=== PATIENT | female | born 1965 | race Caucasian/White ===

== ENCOUNTER 2017-06-19 01:46 | Emergency (ER) | payer SELFPAY ==
[~2017-06-19] VITALS: Ht 154.9 cm; Wt 60.0 kg
[~2017-06-19 01:46] MED LIST: LORT7.5T3
[2017-06-19 01:47] VITALS: BP 173/88; PULSE 68; RESP 16; TEMP 97.8; O2SAT 99
[2017-06-19] MEDS ORDERED: HYDR-3534 PO (02:05)
[2017-06-19] MEDS ORDERED: LEVO100T5 PO (02:05)
[2017-06-19] MEDS ORDERED: SODIUM CHLORIDE 0.9% FLUSH 10 ML FLUSH IVF PRN (02:45)
[2017-06-19] MEDS ORDERED: ASPIRIN 81 MG CHEW TAB PO ONE (02:45)
--- NOTE | 2017-06-19 02:55 | RADRPT ---
EXAM DATE/TIME: 06/19/2017 02:42 [facility] COMPARISON: No previous studies available for comparison. INDICATIONS : Chest pain MEDICAL HISTORY : None. SURGICAL HISTORY : section. Breast Augmentation ENCOUNTER: Initial ACUITY: 1 day PAIN SCORE: 7/10 LOCATION: Bilateral chest FINDINGS: A single view of the chest demonstrates the lungs to be symmetrically aerated without evidence of mas s, infiltrate or effusion. The cardiomediastinal contours are unremarkable. Osseous structures are intact. CONCLUSION: No evidence of acute cardiopulmonary disease. Aditya Cantu MD on June 19, 2017 at 2:54 Board Certified Radiologist. This report was verified electronically.
[2017-06-19 03:01] LABS: AUTOMATED NEUTROPHIL # 8.4 TH/MM3 (1.8-7.7); BASOPHIL # 0.1 TH/MM3 (0-0.2); BASOPHIL % 0.6 % (0.0-2.0); EOSINOPHIL # 0.4 TH/MM3 (0-0.4); EOSINOPHIL % 2.7 % (0.0-4.0); HEMATOCRIT 39.6 % (35.0-46.0); HEMOGLOBIN 13.2 GM/DL (11.6-15.3); LYMPH % 25.1 % (9.0-44.0); LYMPHOCYTE # 3.5 TH/MM3 (1.0-4.8); MEAN CELL VOLUME 91.2 FL (80.0-100.0); MEAN CORPUSCULAR HEMOGLOBIN 30.5 PG (27.0-34.0); MEAN CORPUSCULAR HGB CONC 33.4 % (32.0-36.0); MEAN PLATELET VOLUME 9.7 FL (7.0-11.0); MONO % 11.8 % (0.0-8.0); MONOCYTE # 1.6 TH/MM3 (0-0.9); NEUT % 59.8 % (16.0-70.0); PLATELET COUNT 242 TH/MM3 (150-450); RED BLOOD COUNT 4.34 MIL/MM3 (4.00-5.30); RED CELL DISTRIBUTION WIDTH 13.1 % (11.6-17.2)
[2017-06-19 03:26] LABS: PROTHROMBIN TIME - PATIENT 10.5 SEC (9.8-11.6)
[2017-06-19 03:30] VITALS: BP 121/65; PULSE 55; RESP 16; O2SAT 96
[2017-06-19 03:31] LABS: D-DIMER 0.54 MG/L FEU (0.00-0.50)
[2017-06-19 03:51] LABS: ALBUMIN 3.5 GM/DL (3.4-5.0); ALKALINE PHOSPHATASE 95 U/L (45-117); ALT (GPT) 25 U/L (10-53); AST (GOT) 27 U/L (15-37); BICARBONATE 27.1 MEQ/L (21.0-32.0); BLOOD UREA NITROGEN 19 MG/DL (7-18); CALCIUM 8.8 MG/DL (8.5-10.1); CHLORIDE 105 MEQ/L (98-107); GLOMERULAR FILTRATION RATE 88 ML/MIN (>89); GLUCOSE,RANDOM 86 MG/DL (74-106); SODIUM (NA) 141 MEQ/L (136-145); TOTAL BILIRUBIN ADULT 0.3 MG/DL (0.2-1.0); TOTAL PROTEIN 6.7 GM/DL (6.4-8.2); TROPONIN I LESS THAN 0.02 NG/ML (0.02-0.05)
[2017-06-19] MEDS ORDERED: IOHEXOL 350 MG/ML 10 ML VIAL (for RAD DIAG) IVCONTRAST ONE (04:05)
[2017-06-19 04:10] VITALS: BP 142/77; PULSE 87; RESP 16; O2SAT 98
--- NOTE | 2017-06-19 04:51 | RADRPT ---
EXAM DATE/TIME: 06/19/2017 03:55 [facility] COMPARISON: CHEST SINGLE AP, June 19, 2017, 2:42. INDICATIONS : Chest pain, elevated d-dimer. IV CONTRAST: 75 cc Omnipaque 350 (iohexol) IV RADIATION DOSE: 6.46 CTDIvol (mGy) MEDICAL HISTORY : None SURGICAL HISTORY : None. ENCOUNTER: Initial ACUITY: 2 months PAIN SCALE: 7/10 LOCATION: chest TECHNIQUE: Volumetric scanning of the chest was performed using a pulmonary embolism protocol MIP images were re constructed. Using automated exposure control and adjustment of the mA and/or kV according to patien t size, radiation dose was kept as low as reasonably achievable to obtain optimal diagnostic quality images. DICOM format image data is available electronically for review and comparison. Follow-up recommendations for detected pulmonary nodules are based at a minimum on nodule size and pa tient risk factors according to Fleischner Society Guidelines. FINDINGS: PULMONARY ARTERIES: No filling defects are seen in the pulmonary arteries through the segmental level. LUNGS: There is no consolidation or pneumothorax . No concerning pulmonary nodule is visualized. PLEURAE: There is no pleural thickening or pleural effusion. MEDIASTINUM: There is good visualization of the great vessels of the middle mediastinum. No evidence of mediastin al or hilar adenopathy/mass. Normal heart size. Patchy right and left side coronary artery calcificat ion noted. MUSCULOSKELETAL: Within normal limits for patient age. MISCELLANEOUS: The visualized upper abdominal organs demonstrate no acute abnormality. CONCLUSION: No pulmonary embolus or other acute abnormality demonstrated. Aditya Cantu MD on June 19, 2017 at 4:49 Board Certified Radiologist. This report was verified electronically.
[2017-06-19 06:40] VITALS: BP 140/70; PULSE 50; RESP 16; O2SAT 96
--- NOTE | 2017-06-19 06:41 | PD ---
HPI Chief Complaint: Chest Pain Time Seen by Provider: 02:28 Travel History International Travel<30 days: No Contact w/Intl Traveler<30days: No Traveled to known affect area: No History of Present Illness HPI This is a 52-year-old female who presents to the emergency department with chest discomfort that's been going on ever since her cane or melena which was about a month ago. She says her pain is constant, aching, it started on the right side of her chest that has migrated to the left, and is worse when she moves, lays on her side in bed, and when she sits up and stands up. She initially thought she had pulled a muscle but the pain is not improving and she does have some pain when she takes deep breaths now which she didn't have before. She denies any fevers or chills and denies any productive cough. She denies any nausea or diaphoresis. She has no history of hypertension, hyperlipidemia or diabetes. She does have a smoking history. [facility] Past Medical History Medical History: Denies Significant Hx Arthritis: Yes (LEFT SHOULDER) Diminished Hearing: No Thyroid Disease: Yes Tetanus Vaccination: Never Vaccinated Influenza Vaccination: No ?: Not Tubal Ligation: Yes (1986) Past Surgical History Surgical History: No Previous Surgery Section: Yes (1986) Other Surgery: Yes (BREAST AUGMENTATION 1998) Social History Alcohol Use: No Tobacco Use: No Substance Use: No Allergies-Medications (Allergen,Severity, Reaction): Coded Allergies: No Known Allergies (Verified , 06/19/17) Reported Meds & Prescriptions Reported Meds & Active Scripts Active Reported Lortab (Hydrocodone-Acetaminophen) 7.5-325 Mg Tab 0.5 Tab PO BID PRN Levothyroxine (Levothyroxine Sodium) 100 Mcg Tab Unknown Dose PO DAILY Review of Systems Except as stated in HPI: all other systems reviewed are Neg Physical Exam Narrative GENERAL:Well appearing, no acute distress SKIN: Focused skin assessment warm and dry. HEAD: Atraumatic. Normocephalic. EYES: Pupils equal and round. No injection or drainage. ENT: Moist mucous membranes NECK: Trachea midline. CARDIOVASCULAR: Regular rate and rhythm. No murmur appreciated. RESPIRATORY: Clear to auscultation. Breath sounds equal bilaterally. GASTROINTESTINAL: Abdomen soft, non-tender, nondistended. MUSCULOSKELETAL: Painful when she sits up and moves from side to side in bed. NEUROLOGICAL: Awake and alert. No obvious cranial nerve deficits. Moving all extremities. PSYCHIATRIC: Appropriate mood and affect; insight and judgment normal. Data Data Last Documented VS Vital Signs Date Time Temp Pulse Resp B/P (MAP) Pulse Ox O2 Delivery O2 Flow Rate FiO2 06/19/17 04:10 87 16 142/77 (98) 98 Room Air 06/19/17 01:47 97.8 Orders Orders Electrocardiogram (06/19/17 02:39) Complete Blood Count With Diff (06/19/17 02:39) Comprehensive Metabolic Panel (06/19/17 02:39) D-Dimer (06/19/17 02:39) Prothrombin Time / Inr (Pt) (06/19/17 02:39) Act Partial Throm Time (Ptt) (06/19/17 02:39) Troponin I (06/19/17 02:39) Chest, Single Ap (06/19/17 02:39) Ecg Monitoring (06/19/17 02:39) Bilateral Bp Monitoring (06/19/17 02:39) Iv Access Insert/Monitor (06/19/17 02:39) Oximetry (06/19/17 02:39) Oxygen Administration (06/19/17 02:39) Aspirin Chew (Aspirin Chew) (06/19/17 02:45) Sodium Chloride 0.9% Flush (Ns Flush) (06/19/17 02:45) Ct Pulmonary Angiogram (06/19/17 ) Iohexol 350 Inj (Omnipaque 350 Inj) (06/19/17 04:05) Troponin I (06/19/17 05:06) Labs Laboratory Tests Test 06/19/17 02:30 06/19/17 05:25 White Blood Count 14.0 TH/MM3 Red Blood Count 4.34 MIL/MM3 Hemoglobin 13.2 GM/DL Hematocrit 39.6 % Mean Corpuscular Volume 91.2 FL Mean Corpuscular Hemoglobin 30.5 PG Mean Corpuscular Hemoglobin Concent 33.4 % Red Cell Distribution Width 13.1 % Platelet Count 242 TH/MM3 Mean Platelet Volume 9.7 FL Neutrophils (%) (Auto) 59.8 % Lymphocytes (%) (Auto) 25.1 % Monocytes (%) (Auto) 11.8 % Eosinophils (%) (Auto) 2.7 % Basophils (%) (Auto) 0.6 % Neutrophils # (Auto) 8.4 TH/MM3 Lymphocytes # (Auto) 3.5 TH/MM3 Monocytes # (Auto) 1.6 TH/MM3 Eosinophils # (Auto) 0.4 TH/MM3 Basophils # (Auto) 0.1 TH/MM3 CBC Comment DIFF FINAL Differential Comment Prothrombin Time 10.5 SEC Prothromb Time International Ratio 1.0 RATIO Activated Partial Thromboplast Time 30.6 SEC D-Dimer Quantitative (PE/DVT) 0.54 MG/L FEU Blood Urea Nitrogen 19 MG/DL Creatinine 0.70 MG/DL Random Glucose 86 MG/DL Total Protein 6.7 GM/DL Albumin 3.5 GM/DL Calcium Level 8.8 MG/DL Alkaline Phosphatase 95 U/L Aspartate Amino Transf (AST/SGOT) 27 U/L Alanine Aminotransferase (ALT/SGPT) 25 U/L Total Bilirubin 0.3 MG/DL Sodium Level 141 MEQ/L Potassium Level 3.8 MEQ/L Chloride Level 105 MEQ/L Carbon Dioxide Level 27.1 MEQ/L Anion Gap 9 MEQ/L Estimat Glomerular Filtration Rate 88 ML/MIN Troponin I LESS THAN 0.02 NG/ML LESS THAN 0.02 NG/ML MDM Medical Decision Making Medical Screen Exam Complete: Yes Emergency Medical Condition: Yes Interpretation(s) EKG: Normal sinus rhythm with no ST changes Chest x-ray: No acute process Mild leukocytosis Troponin is negative 2 D-dimer is 0.54 Last 24 hours Impressions Chest X-Ray 06/19/17 0239 Signed Impressions: Service Date/Time: Monday, June 19, 2017 02:42 - CONCLUSION: No evidence of acute cardiopulmonary disease. Aditya Cantu MD CT Angiography 06/19/17 0000 Signed Impressions: Service Date/Time: Monday, June 19, 2017 03:55 - CONCLUSION: No pulmonary embolus or other acute abnormality demonstrated. Aditya Cantu MD Differential Diagnosis Pulmonary embolism, pneumonia, acute coronary syndrome, costochondritis Narrative Course This is a 52-year-old female who presents to the emergency department with chest discomfort. Her description of symptoms is very musculoskeletal in nature. She has pain when she moves around the bed and when she sits up. She was placed on a monitor and an IV was established. EKG is nonischemic. Labs are all reassuring. CT pulmonary angiogram is reassuring. I think the patient is safe to follow-up as an outpatient and I don't suspect acute coronary syndrome based on the patient's reassuring labs and her atypical symptoms. Diagnosis Primary Impression: Musculoskeletal chest pain Patient Instructions: General Instructions Additional Instructions: If you develop severe chest pain, shortness of breath, sweating, lightheadedness , dizziness or difficulty breathing return to the emergency department immediately. Followup with your primary care physician in 2-3 days if your symptoms are not resolved. Med/Other Pt SpecificInfo: No Change to Meds Disposition: 01 DISCHARGE HOME Condition: Stable Sabrina Thompson MD Jun 19, 2017 06:40
--- NOTE | 2017-06-19 19:29 | EKG ---
Date Performed: 06/19/2017 Time Performed: 02:03:55 PTAGE: 52 years EKG: Sinus rhythm POSSIBLE RIGHT VENTRICULAR CONDUCTION DELAY SEPTAL MYOCARDIAL INFARCTION ABNORMAL ECG NO PREVIOUS TRACING DOCTOR: Chi Rooney Interpretating Date/Time 06/19/2017 19:27:36
== END 2017-06-19 06:50 | disposition home or self-care (01) ==
LOC: NEPE 01:46
DX: R07.89 Other chest pain (principal); D72.829 Elevated white blood cell count, unspecified; M19.012 Primary osteoarthritis, left shoulder; E07.9 Disorder of thyroid, unspecified; I25.2 Old myocardial infarction; R94.31 Abnormal electrocardiogram [ECG] [EKG]
CPT/HCPCS: 71010; 71275; 80053; 84484; 85025; 85379; 85610; 85730; 93005; 99285; Q9967